=== PATIENT | male | born 1990 | race American Indian/Alaskan Native ===

== ENCOUNTER 2016-10-05 08:44 | Emergency (ER) | payer OTHER ==
[2016-10-05 08:54] VITALS: BP 135/86
[2016-10-05] MEDS ORDERED: MOTRIN PO ONE (11:54)
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
== END 2016-10-05 12:55 | disposition home or self-care (01) ==
LOC: ED 08:44
DX: S16.1XXA Strain of muscle, fascia and tendon at neck level, initial encounter (principal); M54.5 Low back pain; F12.10 Cannabis abuse, uncomplicated; V49.49XA Driver injured in collision with other motor vehicles in traffic accident, initial encounter; Y93.9 Activity, unspecified; Y92.89 Other specified places as the place of occurrence of the external cause; Y99.9 Unspecified external cause status
CPT/HCPCS: 99282